=== PATIENT | male | born 1990 | race Caucasian/White ===

== ENCOUNTER 2024-10-17 07:25 | Emergency (ER) | payer OTHER, BC, SELFPAY ==
--- NOTE | ~2024-10-17 | XR_ITS ---
HISTORY: Dog bite COMPARISON: None TECHNIQUE: 3 views of the right hand were performed. FINDINGS: No acute fracture is identified. The joint spaces are preserved. The carpal arcs are intact. Mild radiocarpal joint space narrowing with sclerosis of the distal radius is present. Trace negative ulnar variance is detected. Bone mineralization is unremarkable. No significant soft tissue swelling. No radiopaque foreign body is identified. IMPRESSION: No acute fracture or dislocation within the right hand, as detailed above. Reviewed, dictated and finalized at location A.
--- NOTE | ~2024-10-17 | XR_ITS ---
HISTORY: Dog bite COMPARISON: None TECHNIQUE: 3 views of the left hand were performed. FINDINGS: No acute fracture is identified. The joint spaces are preserved. The carpal arcs are intact. Mild radiocarpal joint space narrowing with sclerosis of the distal radius is present. Trace negative ulnar variance is detected. Bone mineralization is unremarkable. Air within the soft tissues lateral to the radiocarpal joint space, consistent with patient's history No radiopaque foreign body is identified. IMPRESSION: Air within the soft tissues lateral to the radiocarpal joint space, without acute fracture or disloca tion within the left hand, as detailed above. No radiopaque foreign body. Reviewed, dictated and finalized at location A. IMPRESSION: Air within the soft tissues lateral to the radiocarpal joint space, without acu te fracture or dislocation within the left hand, as detailed above. No radiopaque foreign body.
--- NOTE | ~2024-10-17 | XR_ITS ---
HISTORY: Dog bite COMPARISON: None TECHNIQUE: 3 views of the left wrist were performed. FINDINGS: No acute fracture is identified. The carpal arcs are intact. Mild radiocarpal joint space narrowing with sclerosis of the distal radius is present. The remaining visualized joint spaces are otherwise preserved. Trace negative ulnar variance is detected. Bone mineralization is unremarkable. Air within the soft tissues along the radial surface of the radiocarpal joint, consistent with deacon t's history. No radiopaque foreign body is identified. IMPRESSION: As above. Reviewed, dictated and finalized at location A. IMPRESSION: As above.
[2024-10-17 07:36] VITALS: BP 134/86; PULSE 133; RESP 20; TEMP 36.6; O2SAT 98
--- OUTSIDE RECORDS SUMMARY | 2024-10-17 07:48 | XMS_ITS | Encounter Summary ---
Author Organization [facility] Address [address] [place] [address] Care Team Providers Care Compensation Administrator Name Role Phone Unavailable Primary Care Provider Unavailabl e Encounter Details Date Type Department Care Team (Late st Contact Info) Description 12/29/2021 Lab Requisition [facility] [address] [place] [id number] Arjun Bone MD [address] [place], [place] [id number] Social History Tobacco Use Types Packs/Day Years Used Date Smoking Tobacco: Never Assessed Sex and Gender Information Value Date Recorded Sex Assigned at Not on file Legal Sex Male 4:26 PM CDT Gender Identity Not on file Sexual Orientation Not on file documented as of this encounter Plan of Treatment Not on file documented as of this encounter Procedures Procedure Name Priority Date/Time Associated Diagnosis Comments DERMATOPATHOLOGY Routine 12/28/2021 12:0 0 AM CDT documented in this encounter Results * DERMATOPATHOLOGY (12/28/2021 12:00 AM CDT) Case Report Dermatopathology Report Case: [id number] Authorizing Provider: Arjun Bone MD Collected: 12/28/2021 12:00 AM Ordering Location: [facility] Received: 12/29/2021 06:10 AM Pathologist: Afia Linton MD Specimen: Skin, left neck 2 1:46 PM CDT DERMATOPATHOLOGY LABORATORY Final Diagnosis Specimen A. 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 Path#[id number] Check margins 2 1:46 PM CDT DERMATOPATHOLOGY LABORATORY Gross Description Specimen A: Received is one formalin filled container labeled with the patient's name and designated left neck. The specimen consists of a [id number] mm piece of skin submitted in cassette 1. Jar 0. 2 1:46 PM CDT DERMATOPATHOLOGY LABORATORY Microscopic Description Specimen A. SKIN, left neck: Lymphocytes, histiocytes, and multinucleated giant cells are present within the dermis. There is focal dermal fibrosis. These changes are present at the margin of the specimen. 2 1:46 PM CDT DERMATOPATHOLOGY LABORATORY Disclaimer An external and internal positive and negative controls are appropriate for the histochemical, immunohistochemical and immunofluorescence stain(s) in this case (if any), except where stated explicitly. The performance characteristics of the stain(s) cited in this report were developed and its performance characteristic determined by the Dermatopathology Laboratory at [facility], directed by Dr. Alisson Walters. These tests need not be, and therefore are not, approved by the [place] Food and Drug Administration. The tests are used for clinical purposes. Billing Codes Specimen Charges Stain Charges 44890 1 2 1:46 PM CDT DERMATOPATHOLOGY LABORATORY Embedded Images 2 1:46 PM CDT DERMATOPATHOLOGY LABORATORY Pathology/Cytolog y TISSUE SPECIMEN FROM SKIN / Unknown 12/28/2021 12/29/2021 6:10 AM CDT us Arjun Bone MD LAB - PATHOLOGY/CYTOLOGY ORDER EDUARDO Final Result DERMATOPATHOLOGY LABORATORY [facility] - Department of Dermatology [address] [place] [address], [facility] [phone] documented in this encounter Visit Diagnoses Not on filedocumented in this encounter
--- OUTSIDE RECORDS SUMMARY | 2024-10-17 07:48 | XMS_ITS | Clinical Summary ---
Author Organization [facility] Address [address] [place] [address] Care Team Providers Care Audio Visual Specialist Name Role Phone Unavailable Primary Care Provider Unavailabl e Source Comments [facility],non-owned Affiliates and Associated Physician Practices is amultiple site organization consisting of ambulatory clinics and hospital sitesin [place], [place], [place] and [place]. This disclosure is being madepursuant to the Care Everywhere program and may not contain all information available regarding this patient. Last updated 18.[facility] [employer] Social History Tobacco Use Types Packs/Day Years Used Date Smoking Tobacco: Never Assessed Sex and Gender Information Value Date Recorded Sex Assigned at Not on file Legal Sex Male 4:26 PM CDT Gender Identity Not on file Sexual Orientation Not on file Plan of Treatment Health Maintenance Due Date Last Done Comments HIV SCREENING 2004 HEPATITIS C SCREENING 06/25/2007 DTAP/TDAP/TD VACCINES (1 - Tdap) 2008 HEPATITIS B VACCINE (1 of 3 - 19+ 3-dose series) 2008 COVID-19 VACCINE ( - 2023-2 5 season) 2023 DEPRESSION SCREENING 04/16/2024 INFLUENZA VACCINE (Season Ended) 2024 ZOSTER VACCINE (1 of 2) 06/30/2039 HIB VACCINE Aged Out No longer eligi ble based on patient's age to complete this topic HPV VACCINE Aged Out No longer eligi ble based on patient's age to complete this topic MENINGOCOCCAL (Group B) VACC INE SHARED DECISION-MAKING Aged Out No longer eligibl e based on patient's age to complete this topic MENINGOCOCCAL GROUPS A/C/Y/W VACCINE Aged Out No longer eligible b ased on patient's age to complete this topic PNEUMOCOCCAL VACCINE Aged Out No long er eligible based on patient's age to complete this topic Insurance FAZAL Member Subscriber Plan / Payer (Ef fective 2021-Present) Name:Raegan Cho Relation to Subscriber:Self Name:RAEGAN CHO Payer ID:[id number] (NAIC) Type:[employer] Address: [facility] [address] [place] [id number]
[2024-10-17] MEDS: NACL 0.9% IRRIGATION POUR BOTTLE 500 ML 1000 ML (08:03)
[2024-10-17] MEDS: TETANUS,DIPHTHERIA,AC PERTUSSIS ADULT (0.5 ML) BOOSTRIX IM (08:03)
--- NOTE | 2024-10-17 08:57 | ED_ITS ---
HPI - General Adult General Chief complaint: Animal Bite Stated complaint: dog bite Time Seen by Provider: 10/17/24 07:37 History of Present Illness HPI narrative: Patient 34-year-old gentleman presents emergency department with chief complaint dog bites patient reports that he was walking his dog and a neighbor's dog came up and attacked his dog patient was trying to separate the dogs reports that he has a laceration to his left wrist and reports he has multiple wounds to his left hand and right hand the patient reports he is unsure of his last tetanus shot patient reports that his dog is currently at the vet undergoing emergency care Related Data Allergies Allergy/AdvReac Type Severity Reaction Status Date / Time loratadine (From Claritin) Allergy Swelling Verified 10/17/24 07:40 Review of Systems Review of Systems: A 10 system review of systems was completed on the patient and is negative except for what is stated in the HPI. Nursing and ancillary documentation was reviewed. Exam Narrative: GENERAL: Well-appearing, well-nourished, and in no acute distress. HEAD: Normocephalic, atraumatic. EYES: PERRLA and EOMI. ENT: Nares clear, no rhinorrhea or epistaxis. Mucous membranes moist. NECK: Supple. CHEST: Clear to auscultation. No respiratory distress. HEART: Regular rate and rhythm. No murmur heard. Normal peripheral pulses. ABDOMEN: Soft, nontender, nondistended, normal active bowel sounds. EXTREMITIES: Normal range of motion. No edema. 2 cm laceration to left wrist area multiple abrasions and small puncture wounds present to the hand of both the left and right patient has full range of motion of the left wrist intact sensory distally injury and intact motor of the left hand showing no signs of tendon SKIN: Warm, dry, no rash. NEURO: No focal deficits. Alert and oriented x3. PSYCH: Normal mood and affect. Course Vital Signs Vital signs: Vital Signs Temperature 36.6 C 10/17/24 07:36 Pulse Rate 133 H 10/17/24 07:36 Respiratory Rate 20 10/17/24 07:36 Blood Pressure 134/86 10/17/24 07:36 Pulse Oximetry 98 10/17/24 07:36 Oxygen Delivery Room Air 10/17/24 07:36 Temperature 36.6 C 10/17/24 07:36 Pulse Rate 133 H 10/17/24 07:36 Respiratory Rate 20 07/04/25 07:36 Blood Pressure 134/86 10/17/24 07:36 Pulse Oximetry 98 10/17/24 07:36 Oxygen Delivery Room Air 10/17/24 07:36 Procedures Laceration Laceration 1: Date: 10/17/24 Time: 09:00 Site: upper extremity (Left wrist) Side (If applicable): left Size (cm): 2 Description: linear Depth: simple, single layer Local Anesthetic: lidocaine 1% Amount of anesthesia used (mL): 5 Pre-repair: wound explored, irrigated and irrigated extensively ====== Skin Level ====== Skin layer closed with: nylon Size (cm): 4-0 Number of sutures: 3 Technique: simple, interrupted ====== Subcutaneous Layer ====== ====== Muscle Layer ====== ====== Tendon Layer ====== Medical Decision Making MDM Narrative Medical decision making narrative: Differential diagnosis includes fracture, foreign body, The patient's tetanus status was updated Patient was started on Augmentin The larger laceration was repaired with loose approximation Vital Signs Vital Signs: Vital Signs Temperature 36.6 C 10/17/24 07:36 Pulse Rate 133 H 10/17/24 07:36 Respiratory Rate 20 10/17/24 07:36 Blood Pressure 134/86 10/17/24 07:36 Pulse Oximetry 98 10/17/24 07:36 Oxygen Delivery Room Air 10/17/24 07:36 Temperature 36.6 C 10/17/24 07:36 Pulse Rate 133 H 10/17/24 07:36 Respiratory Rate 20 10/17/24 07:36 Blood Pressure 134/86 10/17/24 07:36 Pulse Oximetry 98 10/17/24 07:36 Oxygen Delivery Room Air 10/17/24 07:36 Discharge Plan Discharge Clinical Impression: Dog bite, Laceration of left wrist Patient Disposition: Home Condition: Stable Instructions: Antibiotic Form, Animal Bite (ED), Care For Your Stitches (ED), Laceration (ED) Additional Instructions: Yet 3 sutures present in your left wrist. They should be removed in 7-10 days. Please watch for signs of infections the other wounds should be left open it is recommended the wash them thoroughly with soap and water and keep clean dressings on the area Patient Language: Martiniquais Prescriptions: New amoxicillin-pot clavulanate 875-125 mg tablet 1 tablet PO Q12H 7 Days Qty: 14 0RF Follow-up/Referrals: PHYSICIAN,INSTRUMENT REPAIRER [employer] [Primary Care Provider] - Adrian Bennett MD [Physician] -
[2024-10-17 09:24] VITALS: BP 133/82; PULSE 114; RESP 20; O2SAT 99
== END 2024-10-17 09:49 | disposition home or self-care (01) ==
PROVIDERS: Emergency Provider Emergency Medicine
DX: S61.512A Laceration without foreign body of left wrist, initial encounter (principal); W54.0XXA Bitten by dog, initial encounter; Z23 Encounter for immunization
CPT/HCPCS: 12001; 73110; 73130; 90471; 90715; 99284; A9270